=== PATIENT | male | born 1950 | race Caucasian/White ===

== ENCOUNTER → 2021-06-09 16:19 | Outpatient (BNVA) | payer OTHER, SELFPAY | PROVIDERS: Visit Provider Surgery | DX: Z20.822 Contact with and (suspected) exposure to COVID-19 (principal) | CPT/HCPCS: 87635 ==

== ENCOUNTER 2021-06-13 08:23 | Day surgery (SDC) | payer OTHER, SELFPAY ==
[2021-06-12 07:10] VITALS: BMI 30.4
--- NOTE | 2021-06-13 08:44 | ANES.PREANE2 ---
Pre-Anesthetic Assessment Pre-Anesthetic Assessment: Height/Weight: Height 1.73 m Weight 90.718 kg Preop Diagnosis: Screening colonoscopy Proposed Procedure: Operation Date: 06/13/21 10:00 Proposed Procedures p Colonoscopy 25552 Z12.11(Not Applicable) - Izaiah Turner MD Familial anesthetic complications: None (no personal history of anesthesia) Last intake: > 8 hrs Social: Social History: No alcohol and No tobacco Exam: Pre-Anes Outpt Exam: alert, oriented x 3, clear to auscultation bilaterally and regular rate & rhythm Airway: MP: 4 Dentition: Other (missing teeth) CV/HEM: CV/HEM: HTN GI: GI: GERD Metabolic: Metabolic: DM and Hyperlipidemia Musc/skel: Musc/skel: OA/DJD Anesthetic Plan: ASA status: 2 Anesthesia: MAC Risk of > 500 ml blood loss (7ml/kg in children): No PFSH Anesthesia PFSH: Family History Other Hypertension Social History Smoking and tobacco status: never smoked Data Anesthesia Cardiac Studies: No Data to Display
[2021-06-13 09:11] VITALS: BP 138/85; PULSE 72; RESP 16; TEMP 36.6; O2SAT 96
[2021-06-13] MEDS: sodium chloride 0.9% 1,000 ML 30 ML IV (09:27)
--- NOTE | 2021-06-13 09:39 | W.PM.OPSFHP ---
Same Day Surgery H&P Indication for Procedure/HPI DATE OF PROCEDURE: June 13, 2021 CHIEF COMPLAINT/INDICATIONFOR SURGICAL PROCEDURE: screening colonoscopy PREOP DIAGNOSIS: Screening colonoscopy PLANNED PROCEDRUE: Operation Date: 06/13/21 10:00 Proposed Procedures p Colonoscopy 62952 Z12.11(Not Applicable) - Izaiah Turner MD 05/01/21 This is a pleasant 71 years old gentleman referred to my practice to discuss screening colonoscopy. Patient reports back in 2017 had a colonoscopy and patient is not sure if he had colon polyps before. He denies bleeding per rectum or history of colon cancer. 06/13/21 Patient comes today for screening colonoscopy ROS All systems have been reviewed negative except as per the above or per problem list Medications/Allergies* Home Medications Medication Instructions Recorded Confirmed Type atorvastatin 40 mg PO DAILY 06/12/21 06/13/21 History famotidine 20 mg PO BID 06/12/21 06/13/21 History lisinopril 0.5 tab PO DAILY 06/12/21 06/13/21 History alogliptin 25 mg PO DAILY 06/13/21 06/13/21 History Allergies/Adverse Reactions Allergy/AdvReac Type Severity Reaction Status Date / Time No Known Allergies Allergy Unverified 06/13/21 09:40 Current Medications: Generic Name Dose Route Start Last Admin Trade Name Freq PRN Reason Stop Dose Admin Sodium Chloride 1,000 mls @ 30 mls/hr 06/13/21 08:30 06/13/21 09:27 Sodium Chloride 0.9% IV 30 mls/hr .Q24H LIDA Administration Pertinent History/Comorbid Conditions* Family History (Updated 05/01/21 @ 13:18 by Yue Oliver MA) Hypertension Social History Smoking and tobacco status: never smoked Pertinent Exam Findings alert, oriented x 3, regular rate & rhythm and procedure specific exam findings (Abdominal examination nontender nondistended soft) Recommendations Surgery/Procedure today (Screening colonoscopy) Coding Level of Care Code Acute Branch Manager Trainee for Billy Linares
[2021-06-13 10:20] VITALS: BP 107/76; PULSE 82; RESP 16; TEMP 36.3; O2SAT 92
[2021-06-13 10:36] VITALS: BP 107/82; PULSE 74; RESP 18; O2SAT 95
--- NOTE | 2021-06-13 12:23 | ANE.PACU2 ---
Inpatient post-anesthesia follow up: Airway intact: Yes Vital signs: Temperature 97.4 F Pulse Rate 74 Respiratory Rate 18 Blood Pressure 107/82 Pulse Oximetry 95 Oxygen Delivery Me thod Room Air Oxygen Flow Rate 2 Fraction of Inspir ed Oxygen Hydration adequate: Yes Nausea and vomiting: No Pain level: 2 Mental status: Baseline
== END 2021-06-13 10:47 | disposition home or self-care (01) ==
PROVIDERS: Visit Provider Surgery
PROC: 0DJD8ZZ Inspection of Lower Intestinal Tract, Via Natural or Artificial Opening Endoscopic (ICD-10-PCS; CPT 45378; principal; 2021-06-13 10:00)
DX: Z12.11 Encounter for screening for malignant neoplasm of colon (principal); K57.30 Diverticulosis of large intestine without perforation or abscess without bleeding; I10 Essential (primary) hypertension; K21.9 Gastro-esophageal reflux disease without esophagitis; E11.9 Type 2 diabetes mellitus without complications; E78.5 Hyperlipidemia, unspecified
CPT/HCPCS: 45378; 96360; J2704; J7030

== ENCOUNTER 2023-01-25 07:33 | Outpatient (RCR) | payer OTHER, SELFPAY | END 2023-02-01 23:59 | disposition home or self-care (01) | LOC: SPT 07:33 | PROVIDERS: Visit Provider Family Medicine | DX: M62.81 Muscle weakness (generalized) (principal) | CPT/HCPCS: 97110; 97161 ==

== ENCOUNTER 2023-02-02 06:00 | Outpatient (RCR) | payer OTHER, SELFPAY | END 2023-03-04 23:59 | disposition home or self-care (01) | LOC: SPT 06:00 | PROVIDERS: Visit Provider Family Medicine | DX: M62.81 Muscle weakness (generalized) (principal) | CPT/HCPCS: 97110 ==

== ENCOUNTER 2023-03-05 06:00 | Outpatient (RCR) | payer OTHER, SELFPAY | END 2023-03-15 23:59 | disposition home or self-care (01) | LOC: SPT 06:00 | PROVIDERS: Visit Provider Family Medicine | DX: M62.81 Muscle weakness (generalized) (principal) | CPT/HCPCS: 97110 ==

== ENCOUNTER → 2024-06-27 12:57 | Outpatient (BNVA) | payer OTHER, SELFPAY | PROVIDERS: Referring Provider Family Medicine; Visit Provider Internal Medicine | DX: R42 Dizziness and giddiness (principal); R94.31 Abnormal electrocardiogram [ECG] [EKG]; R00.1 Bradycardia, unspecified; R07.9 Chest pain, unspecified | CPT/HCPCS: 93005; 99204 ==

== ENCOUNTER 2024-07-21 06:00 | Outpatient (CLI) | payer OTHER, SELFPAY ==
--- NOTE | 2024-07-21 06:15 | USCV_ITS ---
Mihir Maya Age: 73 Gender: M : 1950 Exam Date: 07/21/2024 06:32 Ordering Phys: Anand Cordova M.D ([email or web address]) Technologist: Joe Badillo [place]am Location[place] [facility] [place]: chest pain BP: 116 / 78 HR: 61 Rhythm: Sinus Technical Quality: Adequate MEASUREMENTS (Male / Female) Normal Values 2D ECHO LVOT Diameter 2.2 cm LV Ejection Fraction MOD 4C 55.6 % LV Ejection Fraction MOD 2C 69.5 % LV Ejection Fraction 2C AL 69.9 % LA Diameter 3.6 cm RA Systolic Volume 4C AL 22.9 ml RA Systolic Volume 4C MOD 23.8 ml LA Sys Volume AL 33.1 cm cubed LA Sys Volume Index AL 15.3 cm cubed/m squared Aorta at Sinotubular Diameter 2.7 cm IVC Diameter 1.6 cm M-MODE LA Ao Ratio MM 1.3 AV Cusp Separation MM 2.1 cm DOPPLER AV Peak Velocity 127.0 cm/s LVOT Peak Velocity 125.0 cm/s AV Area Cont Eq vti 3.5 cm squared AV Area Cont Eq pk 3.6 cm squared MV Peak Velocity 100.0 cm/s MV Area PHT 3.6 cm squared Mitral E to A Ratio 0.7 TV Peak Velocity 268.3 cm/s TR Peak Velocity 296.0 cm/s TR Peak Gradient 35.0 mmHg TR Mean Velocity 220.0 cm/s TR Mean Gradient 22.2 mmHg TR Velocity Time Integral 79.7 cm PV Peak Velocity 117.0 cm/s RV Ejection Time 0.3 s FINDINGS Left Ventricle Left ventricle is normal in size. LV systolic function is normal with EF of 55 to 60%. No regional wall motion abnormalities. Grade 1 diastolic dysfunction. Right Ventricle Normal in size and function Right Atrium Normal in size Left Atrium Normal in size Mitral Valve Structurally normal mitral valve. Mild mitral regurgitation. Aortic Valve Structurally normal aortic valve. No significant stenosis or regurgitation. Tricuspid Valve Mild tricuspid regurgitation. Insufficient TR jet to calculate RVSP. 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 IVC Appears to be normal CONCLUSIONS LV systolic function is normal with EF 55-60%. Grade 1 diastolic dysfunction. Mild mitral regurgitation. 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 No comparison studies are available Anand Cordova MD (Electronically Signed) Final Date: 29 July 2024 13:45 S
== END 2024-07-21 06:01 | disposition home or self-care (01) ==
LOC: RAD 06:02
PROVIDERS: Visit Provider Internal Medicine
DX: R07.9 Chest pain, unspecified (principal); I34.0 Nonrheumatic mitral (valve) insufficiency; I07.1 Rheumatic tricuspid insufficiency; R93.89 Abnormal findings on diagnostic imaging of other specified body structures; I77.819 Aortic ectasia, unspecified site
CPT/HCPCS: 93306

== ENCOUNTER → 2024-08-30 13:59 | Outpatient (BNVA) | payer OTHER, SELFPAY | PROVIDERS: Visit Provider Internal Medicine | DX: R00.1 Bradycardia, unspecified (principal); R07.9 Chest pain, unspecified; R42 Dizziness and giddiness | CPT/HCPCS: 99214 ==

== ENCOUNTER 2024-10-09 06:38 | Outpatient (CLI) | payer OTHER, SELFPAY ==
--- NOTE | 2024-10-09 07:00 | USCV_ITS ---
Mihir Maya Age: 73 Gender: M : 1950 Exam Date: 10/09/2024 06:50 Ordering Phys: Anand Cordova M.D ([email or web address]) Technologist: Exam Location: [facility] – [place] Indication: cp BP: 138 / 88 HR: 63 Rhythm: Sinus Technical Quality: Adequate MEASUREMENTS (Male / Female) Normal Values 2D ECHO LV Diastolic Diameter PLAX 4.8 cm 4.2 - 5.9 / 3.9 - 5.3 cm IVS Diastolic Thickness 1.3 cm 0.6 - 1.0 / 0.6 - 0.9 cm IVS Systolic Thickness 1.5 cm LVPW Diastolic Thickness 1.5 cm 0.6 - 1.0 / 0.6 - 0.9 cm LVPW Systolic Thickness 1.5 cm LVOT Diameter 2.1 cm LV Ejection Fraction 2D Teich 68.0 % LV Ejection Fraction MOD 4C 70.6 % LV Ejection Fraction MOD 2C 57.7 % LV Ejection Fraction 2C AL 58.7 % LA Diameter 3.6 cm RA Systolic Volume 4C AL 34.3 ml RA Systolic Volume 4C MOD 32.2 ml Aorta at Sinotubular Diameter 3.5 cm IVC Diameter 2.1 cm M-MODE LA Ao Ratio MM 0.9 AV Cusp Separation MM 2.2 cm DOPPLER AV Peak Velocity 118.0 cm/s LVOT Peak Velocity 96.0 cm/s AV Area Cont Eq vti 3.0 cm squared AV Area Cont Eq pk 2.8 cm squared MV Peak Velocity 93.0 cm/s MV Area PHT 2.8 cm squared Mitral E to A Ratio 1.0 TR Peak Velocity 189.0 cm/s TR Peak Gradient 14.3 mmHg TV Peak E Velocity 81.0 cm/s PV Peak Velocity 124.0 cm/s FINDINGS Left Ventricle Left ventricle is normal in size. LV systolic function is normal with EF of 55-60%. No regional wall motion abnormalities. Right Ventricle Normal in size and function Right Atrium Normal in size Left Atrium Normal in size Mitral Valve Structurally noraml mitral valve. Mild mitral regurgitation. Aortic Valve Grossly normal. No significant stenosis or regurgitation Tricuspid Valve Mild tricuspid regurgitation. Pulmonary artery systolic pressure is normal. Pulmonic Valve Not well visualized Pericardium Normal Aorta Mildly dilated IVC Not well visualized. CONCLUSIONS LV systolic function is normal with EF of 55-60% Mild mitral regurgitation Mild tricuspid regurgitation Ascending aorta is mildly dilated. Compared to prior echocardiogram from 07/2024, no significant changes are seen Anand Cordova MD (Electronically Signed) Final Date: 22 October 2024 23:15 S
== END 2024-10-09 06:39 | disposition home or self-care (01) ==
PROVIDERS: PCP Family Medicine; Visit Provider Internal Medicine
DX: R07.9 Chest pain, unspecified (principal); R06.02 Shortness of breath; R00.1 Bradycardia, unspecified; I34.0 Nonrheumatic mitral (valve) insufficiency; I07.1 Rheumatic tricuspid insufficiency; I77.810 Thoracic aortic ectasia
CPT/HCPCS: 93306

== ENCOUNTER → 2025-02-20 14:06 | Outpatient (BNVA) | payer OTHER, SELFPAY | PROVIDERS: PCP Family Medicine; Visit Provider Nurse Practitioner Family | DX: L80 Vitiligo (principal); L57.0 Actinic keratosis | CPT/HCPCS: 17000; 99203 ==